=== PATIENT | female | born 1960 | race Caucasian/White ===

== ENCOUNTER → 2016-12-27 | Outpatient (CLI) | payer BC, OTHER ==
[~2016-12-27] MED LIST: CYCL10TA9 PO; ESTR1TAB24; NAPR500T3 PO; SULF500T7
--- NOTE | 2016-12-28 17:40 | Diagnostic Imaging Report ---
Bilateral screening mammogram 2D views with tomosynthesis. The current study was also evaluated with a Computer Aided Detection (CAD) system. INDICATION: Screening. No current complaints stated on the questionnaire. COMPARISON: 11/12/15 FINDINGS: The breasts are composed of scattered fibroglandular densities. There is a circumscribed 5 mm lesion in the lateral upper aspect of the left breast similar to multiple prior exams. Benign-appearing calcifications are seen. Allowing for technique and positional differences, no suspicious change is seen. IMPRESSION: No significant change. ACR BI-RADS Category 2: Benign findings. Result letter will be mailed to the patient. Note: At least 10% of breast cancer is not imaged by mammography. Dictated by: Dictated on workstation # [id number]
== END ==
LOC: RAD 09:55
PROVIDERS: ATTEND Nurse Practitioner
DX: Z12.31 Encounter for screening mammogram for malignant neoplasm of breast (principal)
CPT/HCPCS: 77067

== ENCOUNTER → 2018-01-02 | Outpatient (CLI) | payer BC ==
[~2018-01-02] MED LIST changes: +NAPR-915 PO; -NAPR500T3 PO
== END ==
LOC: RAD 07:26
PROVIDERS: ATTEND Nurse Practitioner
DX: Z12.31 Encounter for screening mammogram for malignant neoplasm of breast (principal); Z53.8 Procedure and treatment not carried out for other reasons

== ENCOUNTER → 2018-01-30 | Outpatient (CLI) | payer BC ==
--- NOTE | 2018-01-30 09:55 | Diagnostic Imaging Report ---
INDICATION: Routine screening. COMPARISON: 12/27/2016 and 12/26/2015. TECHNIQUE: 2D and 3D bilateral screening mammography was performed with CAD. FINDINGS: Scattered fibroglandular densities are identified bilaterally. The parenchymal pattern appears stable. No dominant mass or malignant-appearing microcalcifications are seen. The axillae are unremarkable. IMPRESSION: No mammographic features suspicious for malignancy are identified. ACR BI-RADS Category 1: Negative. Result letter will be mailed to the patient. Note: At least 10% of breast cancer is not imaged by mammography. Dictated by: Dictated on workstation # [id number]
== END ==
LOC: RAD 07:33
PROVIDERS: ATTEND Nurse Practitioner
DX: Z12.31 Encounter for screening mammogram for malignant neoplasm of breast (principal)
CPT/HCPCS: 77067

== ENCOUNTER → 2019-02-09 | Outpatient (CLI) | payer BC ==
--- NOTE | 2019-02-09 20:19 | Diagnostic Imaging Report ---
EXAMINATION: Digital mammogram bilateral screening. The current study was also evaluated with a Computer Aided Detection (CAD) system. 3-D tomosynthesis was also performed and reviewed. INDICATION: Screening. This study was compared to the prior exams of 01/30/2018, 12/27/2016, and 12/26/2015. At this time, there are no current complaints. FINDINGS: The fibroglandular tissue in both breasts is dense. This does limit the sensitivity of this exam. In the interval since the previous study, a 7 mm oval fairly well-defined density has developed in the 6 o'clock position of the retroareolar region of the left breast. I would recommend that a compression view of this area be obtained in the CC and ML projections as well as a true lateral view of the left breast for further evaluation. Ultrasound should also be performed. The right breast is unchanged. IMPRESSION: Additional mammographic views and ultrasound of the left breast will be recommended for further study. ACR BI-RADS Category 0: Incomplete. (Needs additional imaging evaluation). Result letter will be mailed to the patient. Note: At least 10% of breast cancer is not imaged by mammography. Dictated by: Dictated on workstation # [id number]
== END ==
LOC: RAD 07:15
PROVIDERS: ATTEND Obstetrics & Gynecology
DX: Z12.31 Encounter for screening mammogram for malignant neoplasm of breast (principal)
CPT/HCPCS: 77067

== ENCOUNTER → 2019-02-26 | Outpatient (CLI) | payer BC ==
--- NOTE | 2019-02-26 13:25 | Diagnostic Imaging Report ---
Indication: Left breast density. Patient presents for additional views. Correlation is made with recent screening study from 02/09/2019. Unilateral left 2-D and 3-D diagnostic mammography was performed including spot compression cc and ML views as well as conventional 90 degree lateral view. Additional view show persistent density in the 6 clock retroareolar left breast. No suspicious calcifications are seen. Left axilla is unremarkable. Impression: BI-RADS zero Residual nodular density in the inferior retroareolar left breast. Further evaluation of this area with ultrasound is recommended and will be performed today. ACR BI-RADS Category 0: Incomplete. (Needs additional imaging evaluation). Result letter will be mailed to the patient. Note: At least 10% of breast cancer is not imaged by mammography. Dictated by: Dictated on workstation # [id number]
--- NOTE | 2019-02-26 15:49 | Diagnostic Imaging Report ---
INDICATION: Breast density. COMPARISON: Correlation is made with the diagnostic mammogram from earlier this same day and the screening mammogram from 02/09/2019. FINDINGS: Sonographic interrogation of the inferior left breast was performed. There are two cystic lesions noted. The small cyst at the 7 o'clock location approximately 2 cm from the nipple measures 5 mm x 2 mm x 4 mm. The size and shape correlate with the mammographic density. This has benign features. A second cyst is seen at the 6 o'clock location 2 cm from the nipple measuring 4 mm x 3 mm x 4 mm. No solid lesions are seen. IMPRESSION: Two cysts are identified in the 6 to 7 o'clock location in the left breast corresponding to the mammographic density. No concerning findings are identified. The patient may return to routine annual screening mammography. ACR BI-RADS Category 2: Benign findings. Dictated by: Dictated on workstation # [id number]
== END ==
LOC: RAD 12:38
PROVIDERS: ATTEND Obstetrics & Gynecology
DX: N60.02 Solitary cyst of left breast (principal); R92.2 Inconclusive mammogram
CPT/HCPCS: 76642

== ENCOUNTER → 2020-02-12 | Outpatient (CLI) | payer BC ==
[~2020-02-12] MED LIST changes: +SLF500T; -SULF500T7
--- NOTE | 2020-02-12 08:44 | Diagnostic Imaging Report ---
INDICATION: Postmenopausal screening for osteoporosis. COMPARISON: None FINDINGS: AP Spine L1-L4: [BMD (g/cm2): 1.073] [T-Score: -1.1] [Z-Score: 0.4] [BMD Previous: NA] [BMD % Change: NA] LT Hip Neck: [BMD (g/cm2): 0.847] [T-Score: -1.4] [Z-Score: 0.1] LT Hip Total: [BMD (g/cm2):0.766] [T-Score:-1.9] [Z-Score: -0.8] [BMD Previous: NA] [BMD % Change: NA] RT Hip Neck: [BMD (g/cm2):0.744] [T-Score:-2.1] [Z-Score:-0.7] RT Hip Total: [BMD (g/cm2):0.671] [T-score:-2.7] [Z-Score:-1.6] [BMD Previous:NA] [BMD % Change:NA] *Indicates significant change from prior examination based on 95% confidence level. World Health Organization criteria for BMD interpretation classify patients as Normal (T-score at or above -1.0), Osteopenic (T-score between -1.0 and -2.5) or Osteoporotic (T-score at or below -2.5). LIMITATIONS AND MODIFICATION: None. FRACTURE RISK (FRAX SCORE): The ten year probability of (%): Major Osteoporotic Fracture: [7.8] Hip Fracture: [1.2] IMPRESSION: 1. Osteopenia (Low bone mass). 2. Baseline examination. 3. See below National Osteoporosis Foundation guidelines on when to potentially initiate pharmacologic therapy. Based on the National Osteoporosis Foundation Guidelines, pharmacologic treatment should be initiated in any of the following, unless clinical conditions suggest otherwise: * Any patient with prior fragility fracture of the hip or vertebrae. A spine fracture indicates 5X risk for subsequent spine fracture and 2X risk for subsequent hip fracture. * Osteoporosis (T-score <-2.5). * Postmenopausal women and men age 50 and older with low bone mass/osteopenia (T-score between -1.0 and -2.5) by DXA and 10-year major osteoporotic fracture greater than 20% or a 10-year probability of hip fracture greater than 3%. These fracture risks are supplied above in the FRAX score, if applicable. * Clinician judgement and/or patient preferences may indicate treatment for people with 10-year fracture probabilities above or below these levels. Dictated by: Dictated on workstation # [id number]
--- NOTE | 2020-02-12 10:40 | Diagnostic Imaging Report ---
EXAMINATION: Bilateral mammograms clinical indications screening COMPARISON: 02/09/2019, 01/30/2018, 12/27/2016. FINDINGS: Fibroglandular tissue is heterogeneously dense . There is no dominant mass, spiculated lesions or suspicious calcification identified. Skin and nipples and axilla are unremarkable. IMPRESSION: Category 1 negative ACR BI-RADS Category 1: Negative. Result letter will be mailed to the patient. Note: At least 10% of breast cancer is not imaged by mammography. Dictated by: Dictated on workstation # [id number]
== END ==
LOC: RAD 07:57
PROVIDERS: ATTEND Obstetrics & Gynecology
DX: Z91.89 Other specified personal risk factors, not elsewhere classified (principal); N95.8 Other specified menopausal and perimenopausal disorders; Z68.1 Body mass index [BMI] 19.9 or less, adult
CPT/HCPCS: 77063; 77067; 77080

== ENCOUNTER → 2020-07-01 | Outpatient (CLI) | payer BC ==
[~2020-07-01] MED LIST changes: +HOLD METFORMIN - RECEIVED CONTRAST 20 ML VIAL IV SCH; +IOHEXOL 350 MG/ML 100 ML (OMNIPAQUE 350) VIAL IV ONE; +NS 100 ML (IVPB) BAG IV ONE
[2020-07-01 07:55] LABS: BUN/CREATININE RATIO 25; CREATININE SERUM 0.63 MG/DL (0.60-1.30); GFR ESTIMATED > 60
--- NOTE | 2020-07-01 09:14 | Diagnostic Imaging Report ---
PROCEDURE: CT neck soft tissue with contrast. TECHNIQUE: Multiple contiguous axial images were obtained through the neck after the administration of contrast. Auto Exposure Controls were utilized during the CT exam to meet ALARA standards for radiation dose reduction. INDICATION: Left neck mass. Difficulty swallowing. COMPARISON: None. FINDINGS: Radiopaque marker overlying the left sternocleidomastoid muscle, indicating the area of interest. There is no mass or fluid collection in the neck. No cervical lymphadenopathy. The pharyngeal and laryngeal soft tissues are symmetric bilaterally with no suspicious mass or enhancement. The floor of the mouth, tongue base, epiglottis, and retropharyngeal space are negative. The parotid glands are partially visualized but negative, where seen. The thyroid and submandibular glands are negative. The cervical carotid and vertebral arteries are grossly patent on this non angiographic exam. Scarring in the lung apices. Negative cervical spine. IMPRESSION: No mass, fluid collection, or lymphadenopathy in the neck. No abnormal findings underlying the radiopaque marker, indicating the area of interest. Dictated by: Dictated on workstation # [id number]
== END ==
LOC: RAD FS 07:16
PROVIDERS: ATTEND Surgery
DX: R22.1 Localized swelling, mass and lump, neck (principal)
CPT/HCPCS: 36415; 70491; 82565; 84520

== ENCOUNTER → 2021-02-20 | Outpatient (CLI) | payer BC ==
[~2021-02-20] MED LIST changes: -HOLD METFORMIN - RECEIVED CONTRAST 20 ML VIAL IV SCH; -IOHEXOL 350 MG/ML 100 ML (OMNIPAQUE 350) VIAL IV ONE; -NS 100 ML (IVPB) BAG IV ONE
--- NOTE | 2021-02-20 09:16 | Diagnostic Imaging Report ---
INDICATION: Routine screening. Comparison is made with prior mammogram from 02/12/2020 and 02/09/2019. 2-D and 3-D bilateral screening mammography was performed with CAD. Both breasts are heterogeneously dense, limiting the sensitivity of mammography. The parenchymal pattern is stable. No mass or malignant-appearing microcalcifications are seen. Axillae are unremarkable. IMPRESSION: BI-RADS Category 1. No mammographic features suspicious for malignancy are identified. ACR BI-RADS Category 1: Negative. Result letter will be mailed to the patient. Note: At least 10% of breast cancer is not imaged by mammography. Dictated by: Dictated on workstation # [id number]
== END ==
LOC: RAD 07:30
PROVIDERS: ATTEND Family Medicine
DX: Z12.31 Encounter for screening mammogram for malignant neoplasm of breast (principal)
CPT/HCPCS: 77063; 77067